=== PATIENT | male | born 1955 | race Caucasian/White ===

== ENCOUNTER 2022-06-05 08:42 | Outpatient (CLI) | payer OTHER ==
[2022-06-05] MEDS ORDERED: Iopamidol 300 61% 100 ML VIAL FS ONE (13:31)
== END 2022-06-05 08:43 | disposition home or self-care (01) ==
LOC: CSHCT 08:42
PROVIDERS: ATTEND Family Medicine
DX: R93.89 Abnormal findings on diagnostic imaging of other specified body structures (principal); R91.8 Other nonspecific abnormal finding of lung field
CPT/HCPCS: 71260; 82565; Q9967